=== PATIENT | female | born 1950 | race Caucasian/White ===

== ENCOUNTER → 2017-10-15 | Day surgery (SDC) | payer OTHER ==
[~2017-10-15] VITALS: Ht 167.6 cm; Wt 73.0 kg
[~2017-10-15] MED LIST: AMOX500C PO; AMPH1TAB29 PO; BENZ1CAP51 PO; CHLORHEXIDINE GLUCONATE 2 % 1 PACK (2 CLOTHS) TOPICAL PRN; DENO60P SQ; HYALURONIDASE/LIDOCAINE/BUPIVACAINE 5 ML SYR LEFT EYE ONE; IBUP1TAB5 PO; LACTATED RINGER'S 1000 ML IV PRN; LEVO200T4 PO; LIDOCAINE HCL 1% PF 5 ML AMPULE ONE; LORA1TAB12 PO; METOPROLOL TARTRATE 25 MG TAB PO PRN; POVIDONE IODINE 5% (ANTISEPSIS KIT) 4 APPLICATIONS EACH NARE PRN; PRED20 PO; PROPARACAINE HCL 0.5% OPHT SOLN 15 ML BTL LEFT EYE ONE; PROPOFOL 200 MG/20 ML AMP ONE; SODIUM CHLORID 0.9% 500 ML IV PRN; TOBRAMYCIN/DEXAMETHASONE OPTH OINT 3.5 GM TUBE ONE; VENTAER INH; ZITHTAB PO
[2017-10-15] MEDS: FLURBIPROFEN 0.03% OPHT SOLN 2.5 ML BTL LEFT EYE SCH ×4 (07:15→07:30)
[2017-10-15] MEDS: PHENYLEPHRINE HCL 10% OPTH SOLN 5 ML BTL LEFT EYE SCH ×4 (07:15→07:30)
[2017-10-15] MEDS: CYCLOPENTOLATE HCL 1% OPHT SOLN 2 ML BTL LEFT EYE SCH ×4 (07:15→07:30)
[2017-10-15] MEDS: TROPICAMIDE 1% OPHT SOLN 15 ML BTL LEFT EYE SCH ×4 (07:15→07:30)
[2017-10-15 07:16] VITALS: PULSE 59
[2017-10-15 07:52] VITALS: PULSE 63
[2017-10-15 09:50] VITALS: BP 105/53; PULSE 56; RESP 16; TEMP 98.2; O2SAT 98
--- NOTE | 2017-10-15 10:42 | MP ---
cc: Emigdio Nielsen MD DATE OF OPERATION: 10/15/2017 [facility] #[id number] PREOPERATIVE DIAGNOSIS: Visually significant cataract, left eye. POSTOPERATIVE DIAGNOSIS: Visually significant cataract, left eye. OPERATION: Phacoemulsification with posterior chamber lens implantation, left eye. SURGEON: Emigdio Nielsen MD ANESTHESIA: Retrobulbar with MAC. COMPLICATIONS: None. PROCEDURE: After informed consent was obtained, the patient was brought into the operative suite and placed on appropriate monitors by the Anesthesia Service. The patient had received a prior retrobulbar injection of local anesthetic by the Anesthesia Service in the holding area. The patient's operative eye was then prepped and draped in the usual sterile fashion. A wire lid speculum was placed. A paracentesis incision was made in the peripheral cornea with a 1 mm home keratome. The anterior chamber was filled with viscoelastic. The anterior chamber was then entered through a stepped, clear corneal incision using a sharp 3 mm home keratome. A circular tear capsulorrhexis was then made with a bent needle cystitome. Following hydrodissection of the lens nucleus with balanced saline, phaco-emulsification of the nucleus was performed using a modified chopping technique. The remaining cortex was removed with irrigation/aspiration. The prior two procedures were both performed using the handpieces of the [employer] phaco unit. The capsular bag was then filled with viscoelastic. The intraocular lens was then injected into the capsular bag and positioned. The type of intraocular lens and its power can be found elsewhere in this chart. The remaining viscoelastic was then removed from the anterior chamber with the IA handpiece. The anterior chamber was reformed with balanced saline. The wound was then closed securely with stromal hydration. It was found to be watertight to an intraocular pressure of at least 30 mmHg by palpation. A small amount of balanced salt solution was then removed through the paracentesis site and the intraocular pressure at the end of the case was approximately 20 by palpation. All drapes were then removed. TobraDex ointment was then placed in the eye, which was closed beneath a semi-pressure patch dressing. The patient tolerated this procedure well and left the operating room awake and alert. The patient is to follow-up in my office in the morning. Emigdio MD EDISON Felix/NEVILLE , 10:27 AM , 10:41 AM
== END | disposition home or self-care (01) ==
LOC: PHSDC 06:42 → EDSTATUS 11:30
PROVIDERS: ATTEND Optometrist Occupational Vision
DX: H25.12 Age-related nuclear cataract, left eye (principal)
CPT/HCPCS: 00142; 66984; J7040; V2632

== ENCOUNTER → 2017-10-22 | Day surgery (SDC) | payer OTHER ==
[~2017-10-22] MED LIST changes: -AMOX500C PO; -BENZ1CAP51 PO; +BUPIVACAINE HCL PF 0.75% 30 ML VIAL ONE; +BUPIVACAINE/EPINEPHRINE 0.5% PF 30 ML VIAL ONE; -CHLORHEXIDINE GLUCONATE 2 % 1 PACK (2 CLOTHS) TOPICAL PRN; -DENO60P SQ; -HYALURONIDASE/LIDOCAINE/BUPIVACAINE 5 ML SYR LEFT EYE ONE; +LACTATED RINGER'S 1000 ML INJ 1,000 ML ONE; -LACTATED RINGER'S 1000 ML IV PRN; +LIDOCAINE 1%/EPINEPHrine 1:100,000 SOLN 30 ML VIAL ONE; -LIDOCAINE HCL 1% PF 5 ML AMPULE ONE; -METOPROLOL TARTRATE 25 MG TAB PO PRN; +MIDAZOLAM HCL 5 MG/ML VIAL (1 ML) ONE; +ONDANSETRON HCL 4 MG/2 ML VIAL IV PUSH ONE; -POVIDONE IODINE 5% (ANTISEPSIS KIT) 4 APPLICATIONS EACH NARE PRN; -PRED20 PO; -PROPARACAINE HCL 0.5% OPHT SOLN 15 ML BTL LEFT EYE ONE; +PROPOFOL 200 MG/20 ML AMP IV ONE; -PROPOFOL 200 MG/20 ML AMP ONE; -SODIUM CHLORID 0.9% 500 ML IV PRN; -TOBRAMYCIN/DEXAMETHASONE OPTH OINT 3.5 GM TUBE ONE; -VENTAER INH; -ZITHTAB PO; +ceFAZolin INJ 1,000 MG VIAL ONE
--- NOTE | 2017-10-22 15:53 | TN ---
cc: Phani Monroy MD DATE OF SURGERY: 10/22/2017 ATTENDING PHYSICIAN: MD Porfirio PREOPERATIVE DIAGNOSES: 1. Left shoulder impingement syndrome, subacromial bursitis/rotator cuff tendinitis/biceps tendinitis. 2. Acromioclavicular joint arthritis. 3. Torn glenoid labrum. POSTOPERATIVE DIAGNOSES: 1. Left shoulder impingement syndrome, subacromial bursitis/rotator cuff tendinitis/biceps tendinitis. 2. Acromioclavicular joint arthritis. 3. Torn glenoid labrum. PROCEDURE: Left shoulder arthroscopy with debridement and repair of glenoid labrum, arthroscopic subacromial decompression with anterior acromioplasty and coracoacromial ligament release, open excision distal clavicle. PROCEDURE IN DETAIL: Informed consent was obtained. The patient was taken to the operating room and placed in the supine position on the operative table. She was administered a general anesthesia by Dr. Shi of the Anesthesia Department. She did have a shoulder block prior to the initiation of the operative procedure. She was turned to the lateral decubitus position on a beanbag and a U-drape was applied over the patient's shoulder. The shoulder was then prepped with Betadine soap, followed by Betadine paint. Draping commenced with sterile towels about the shoulder, split sheets, sterile stockinette with attachment for the Acufex shoulder fernandez were placed, 10 pounds of traction was applied. An Ioban drape was cut, utilized to further drape off the field. The patient was given 1 gram of Ancef prior to initiating the operative procedure. At that time, a timeout was held and confirmed. An 18-gauge spinal needle was then placed proximal, 1 cm inferior to the posterior angle of the acromion, directed toward the coracoid process. Shoulder joint was entered and infiltrated with 4 mL of 1% lidocaine with epinephrine. A small incision was made with an 11 blade and the shoulder joint was then entered utilizing the arthroscopic cannula. The 25-degree arthroscope was introduced in the shoulder joint. Diagnostic arthroscopy commenced. It was seen that the biceps tendon was identified; it appeared essentially normal. The subscapularis appeared normal. Humeral head had some mild arthritic changes. There were arthritic changes also noted on the glenoid. Anteriorly, it appeared that there was a detachment of some of the anterior glenoid labrum. However, a portion of the mid-glenohumeral ligament did appear to be intact. Posteriorly, there was some tearing of the labrum as there was inferiorly. The torn regions were debrided with a shaver placed through an anterior portal. The undersurface of the rotator cuff was inspected and this appeared normal. At that time, the Arthrex anchors were brought into the field. Two suture loops were applied about the anterior labrum. Two Arthrex suture anchors were then utilized to reattach the anterior labrum to the glenoid. Once this had been satisfactorily performed, the labrum was again checked. Otherwise, the labrum appeared satisfactory at that time. The scope was then removed from the shoulder joint and placed in the subacromial bursa. The coracoacromial ligament and acromion as well as superior surface of the rotator cuff were identified. There were no full-thickness rotator cuff tears identified. The ligament was shaved and then released from the acromion with basket forceps, the anterior acromioplasty was then accomplished utilizing a bur. Once satisfactory debridement had been obtained this area was irrigated and suctioned and all cannulas were removed. Next, an incision was made transversely over the AC joint. A longitudinal incision was made through the periosteum over the AC joint. Utilizing an oscillating saw, the distal 1/4-inch of clavicle was removed. There were extensive arthritic changes noted in this area. At that time, the wound was irrigated and closed with #1 Vicryl in the periosteum, 2-0 Vicryl in the deep subcutaneous, followed by 3-0 plain, 4-0 nylon interrupted stitch utilizing Allgower type stitch were placed. The arthroscopy portals were closed with two 4-0 nylon sutures in the lateral and posterior region. The anterior was closed with two 2-0 plain sutures and the 4-0 nylon. It is noted that for placement of the anterior anchors a large Arthrex cannula was required. At the completion of the procedure, sponge count, instrument count and needle counts were correct. Estimated blood loss was less than 10 mL. After application of the sutures, Steri-Strips, 4 x 4's, ABD, and tape were applied to the patient's shoulder which was placed in a sling. She tolerated the procedure well and was taken to the recovery room in stable condition. MD BORIS Britton/AKILAH , 03:29 PM , 03:52 PM
== END | disposition home or self-care (01) ==
LOC: ESDC 10:46
PROVIDERS: ATTEND Orthopaedic Surgery
DX: M75.42 Impingement syndrome of left shoulder (principal); M75.52 Bursitis of left shoulder; M75.22 Bicipital tendinitis, left shoulder; M19.012 Primary osteoarthritis, left shoulder; S43.492A Other sprain of left shoulder joint, initial encounter
CPT/HCPCS: 00450; 01630; 01991; 23120; 29806; 29826; 64417; 76942; C1713; J0690; J2250; J2405; J7120